=== PATIENT | female | born 2005 ===

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

== ENCOUNTER 2024-04-24 16:41 | Emergency (ER) | payer BC, SELFPAY ==
--- NOTE | ~2024-04-24 | XR_ITS ---
EXAMINATION: XR finger 1st LT min 2V DATE: 04/24/2024 16:59 INDICATION: Left thumb injury and pain. TECHNIQUE: 3 views of left thumb were obtained. COMPARISON: None. FINDINGS: Bone alignment is normal. There is a nondisplaced fracture of trapezium with involvement of the distal articular surface. There is a fracture of base of first metacarpal involving the palmar a rticular surface with 2 mm displacement. There is mild osteoarthritis of first carpometacarpal joint. IMPRESSION: 1. Fractures of trapezium and base of first metacarpal. Reviewed, dictated and finalized at location A.
[2024-04-24 16:52] VITALS: BP 111/69; PULSE 82; RESP 20; TEMP 36.8; O2SAT 100
--- NOTE | 2024-04-24 17:05 | ED.UPPEXIN ---
HPI - Extremity Injury (Upper) General Chief Complaint: Extremity Injury, Upper Stated Complaint: INJURED L HAND Time Seen by Provider: 04/24/24 16:54 Source: patient and RN notes reviewed Mode of arrival: ambulatory Limitations: no limitations History of Present Illness HPI narrative: Patient presents today with an injury to her left thumb. Almost 2 weeks ago she fell off a horse on to her left hand and jammed her thumb. Initially her thumb and thenar eminence was very swollen and painful. 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 Denies numbness or tingling. Related Data Allergies Allergy/AdvReac Type Severity Reaction Status Date / Time carrot Allergy Unknown Nausea Verified 04/24/24 16:49 egg Allergy Unknown Nausea Verified 04/24/24 16:49 sesame seed Allergy Unknown Nausea Verified 04/24/24 16:49 Review of Systems Review of Systems: CONSTITUTIONAL: Denies body aches, fever, chills, or sweats. EYES: Denies visual changes, redness, or discharge. ENT: Denies rhinorrhea, congestion, sore throat, or otalgia. CARDIOVASCULAR: Denies chest pain, palpitations, or edema. RESPIRATORY: Denies cough or dyspnea. GASTROINTESTINAL: Denies abdominal pain, nausea, vomiting, or diarrhea. GENITOURINARY: Denies dysuria or hematuria. SKIN: Denies rash, itching, or wounds. MUSCULOSKELETAL:+ left thumb injury NEUROLOGIC: Denies headache, numbness, tingling. PSYCH: Denies depression or anxiety. [facility] Past Medical History Medical History Pneumonia Family History Family History Mother Family history of migraine headaches Family history of malignant melanoma Father Family history of type 1 diabetes mellitus Social History Social History Smoking status: Never smoker Second hand tobacco smoke exposure: No Comments At time of signature, I have reviewed and agree with nursing past medical, surgical, social and family history unless otherwise noted. Please see nursing chart for further information. There is no relevant family history pertinent to the presenting complaint Exam Narrative: GENERAL: Well-appearing, well-nourished, and in no acute distress. HEAD: Normocephalic, atraumatic. EYES: EOMI. No redness or drainage. Conjunctivae normal. ENT: Mucous membranes pink and moist. NECK: Normal AROM. CHEST: No respiratory distress. EXTREMITIES: Left hand: Healing ecchymosis to the thenar eminence with mild edema. Tenderness to this area as well. Full AROM at the first IP joint without difficulty. Very limited ROM at the first MCP and the first carpometacarpal joint. Distal sensation intact. Capillary refill. Radial pulse. SKIN: Warm, dry, no rash. Capillary refill normal. NEURO: No focal deficits. Alert and oriented x3. Gait steady. PSYCH: Normal affect. No signs of depression or anxiety. Course Course Level of Care: Express Care Visit Vital Signs Vital signs: Vital Signs Temperature 98.3 F 04/24/24 16:52 Pulse Rate 82 04/24/24 16:52 Respiratory Rate 20 04/24/24 16:52 Blood Pressure 111/69 04/24/24 16:52 Pulse Oximetry 100 04/24/24 16:52 Temperature 98.3 F 04/24/24 16:52 Pulse Rate 82 04/24/24 16:52 Respiratory Rate 20 04/24/24 16:52 Blood Pressure 111/69 04/24/24 16:52 Pulse Oximetry 100 04/24/24 16:52 Reviewed Procedures Orthopedic Splinting/Casting Injury #1: Splinting/Casting Date: 04/24/24 Splinting/Casting Time: 17:29 Side: left OCL: thumb spica Pre-Procedure Neuro Vascular Exam: normal Post-Procedure Neuro Vascular Exam: normal Other Orthopedic Equipment:
== END 2024-04-24 17:34 | disposition home or self-care (01) ==
PROVIDERS: Emergency Provider Nurse Practitioner; PCP Family Medicine
DX: S62.175A Nondisplaced fracture of trapezium [larger multangular], left wrist, initial encounter for closed fracture (principal); S62.232A Other displaced fracture of base of first metacarpal bone, left hand, initial encounter for closed fracture; V80.010A Animal-rider injured by fall from or being thrown from horse in noncollision accident, initial encounter
CPT/HCPCS: 29125; 73140; 99214; A4565; G0463